=== PATIENT | male | born 1990 | race Caucasian/White ===

== ENCOUNTER 2018-09-02 19:40 | Emergency (ER) | payer SELFPAY ==
[~2018-09-02] VITALS: Ht 170.2 cm; Wt 102.5 kg
[2018-09-02] MEDS ORDERED: LORAZEPAM 1 MG TABLET ONE (19:46)
--- NOTE | 2018-09-02 19:49 | NUR ---
LIZET FROM HOME. TO ER BED 9. AMBULATORY. AAOX4. BREATHING RAPID AND SHALLOW. TRAMBLING AND ANXIOUS. C/O PALPITATION AND L FACIAL NUMBNESS 45 MIN AGO. PT IS NOTED WITH L CHEEK DROOP ABLE TO RAISE BOTH EYEBROWS. PT IS ALSO REPORTING BOTH HANDS NUMBNESS AND RESTLESS LEGS. PT ADMITS TO SMOKING MARIJUANNA 1 HOUR AGO. PT JUST GOT BACK FROM [place] YESTERDAY. DENIES N/V/D. AT BEDSIDE. ORDERS RECEIVED, NOTED AND CARRIED OUT.
[2018-09-02] MEDS ORDERED: LORAZEPAM 1 MG TABLET PO ONE (20:00)
[2018-09-02 20:46] LABS: BASOPHILS % (AUTO) 0.4 % (0.0-2.0); EOSINOPHILS % (AUTO) 0.9 % (0.0-6.0); HEMATOCRIT 48 % (39-51); HEMOGLOBIN 16.5 g/dL (13.5-17.5); LYMPHOCYTES # (AUTO) 0.9 /CMM (0.8-4.8); MEAN CORPUSCULAR HGB CONC 35 g/dl (31.0-36.0); MEAN CORPUSCULAR VOLUME 93 fL (80-96); MONOCYTES # (AUTO) 0.5 /CMM (0.1-1.30); MONOCYTES % (AUTO) 7.6 % (2.0-12.0); NEUTROPHILS # (AUTO) 4.8 /CMM (1.8-8.9); NEUTROPHILS % (AUTO) 76.1 % (43.0-81.0); PLATELET COUNT (AUTO) 267 /CMM (150-450); RED BLOOD CELL COUNT(AUTO) 5.11 MIL/uL (4.5-6.0); WHITE BLOOD COUNT (AUTO) 6.3 K/uL (4.3-11.0)
[2018-09-02 20:52] LABS: CALCIUM, SERUM 8.6 mg/dL (8.5-10.1); CARBON DIOXIDE 27 mmol/L (21-32); CHLORIDE 105 mmol/L (98-107); CREATININE 1.2 mg/dL (0.6-1.3); GLUCOSE 129 mg/dL (74-106); POTASSIUM 3.8 mmol/L (3.5-5.1); SODIUM SERUM 140 mmol/L (136-145); UREA NITROGEN, BLOOD 13 mg/dL (7-18)
--- NOTE | 2018-09-02 20:52 | NUR ---
PT TO CT IN [place]
[2018-09-02 20:58] LABS: ALANINE AMINOTRANSFERASE 38 U/L (12-78); ALBUMIN 3.7 g/dL (3.4-5.0); ALKALINE PHOSPHATASE 60 U/L (46-116); ASPARTATE AMINOTRANSFERASE 16 U/L (15-37); BILIRUBIN,DIRECT 0.1 mg/dL (0.0-0.2); BILIRUBIN,TOTAL 0.4 mg/dL (0.2-1.0); TOTAL PROTEIN, SERUM 7.1 g/dL (6.4-8.2)
--- NOTE | 2018-09-02 21:40 | NUR ---
Patient discharged to home in stable condition. Written and verbal after care instructions given. Patient verbalizes understanding of instruction.
[2018-09-02 21:41] VITALS: BP 137/84
== END 2018-09-02 21:41 | disposition home or self-care (01) ==
LOC: ER 20:38
DX: R20.2 Paresthesia of skin (principal)
CPT/HCPCS: 36415; 70450-TC; 80048-TC; 80076-TC; 84484-TC; 85025-TC